=== PATIENT | female | born 1960 | race Caucasian/White ===

== ENCOUNTER 2018-06-24 14:53 | Outpatient (CLI) | payer OTHER | END 2018-06-24 14:54 | disposition home or self-care (01) | LOC: BICMAMMO 14:53 | PROVIDERS: ATTEND Obstetrics & Gynecology Gynecologic Oncology | DX: Z12.31 Encounter for screening mammogram for malignant neoplasm of breast (principal); Z85.89 Personal history of malignant neoplasm of other organs and systems | CPT/HCPCS: 77063; 77067 ==

== ENCOUNTER 2018-07-28 09:07 | Outpatient (CLI) | payer OTHER ==
--- NOTE | 2018-07-28 12:27 | MRI ---
MRI BRAIN WITHOUT CONTRAST: Date: 07/28/18 HISTORY: Persistent headaches. FINDINGS: No evidence of infarct, hemorrhage, midline shift, or abnormal extra-axial fluid collections are seen . The ventricular size is normal and the basilar cisterns are patent. No restricted diffusion is iden tified. A nonspecific small focus of T2 prolongation is seen in the white matter of the right frontal lobe. IMPRESSION: No evidence of acute intracranial process. POS: [facility]
== END 2018-07-28 09:08 | disposition home or self-care (01) ==
LOC: SCSMRI 09:07
PROVIDERS: ATTEND Family Medicine
DX: R51 Headache (principal)
CPT/HCPCS: 70551

== ENCOUNTER 2019-08-21 15:20 | Outpatient (CLI) | payer OTHER ==
--- NOTE | 2019-08-21 15:56 | MMO ---
Bilateral MAMMO Bilat Screen [facility]. CLINICAL HISTORY: Patient is 59 years old and is seen for screening. The patient has no family history of breast cancer. The patient has a history of cervical cancer. VIEWS: The views performed were: bilateral craniocaudal with tomosynthesis and bilateral mediolateral oblique with tomosynthesis. FILMS COMPARED: The present examination has been compared to prior imaging studies performed at [facility] on 03/01/2015, 04/03/2016, 06/11/2017 and 06/24/2018. This study has been interpreted with the assistance of computer-aided detection. MAMMOGRAM FINDINGS: There are scattered fibroglandular densities. There are no suspicious masses, suspicious calcifications, or new areas of architectural distortion. IMPRESSION: THERE IS NO MAMMOGRAPHIC EVIDENCE OF MALIGNANCY. A ROUTINE FOLLOW-UP MAMMOGRAM IN 1 YEAR IS RECOMMENDED. THE RESULTS OF THIS EXAM WERE SENT TO THE PATIENT. ACR BI-RADS Category 1 - Negative MAMMOGRAPHY NOTE: 1. A negative mammogram report should not delay a biopsy if a dominant of clinically suspicious mass is present. 2. Approximately 10% to 15% of breast cancers are not detected by mammography. 3. Adenosis and dense breasts may obscure an underlying neoplasm. Reported by: ROSA ROSS MD Electonically Signed: [id number]
== END 2019-08-21 15:21 | disposition home or self-care (01) ==
LOC: BICMAMMO 15:20
PROVIDERS: ATTEND Obstetrics & Gynecology Gynecologic Oncology
DX: Z12.31 Encounter for screening mammogram for malignant neoplasm of breast (principal); Z85.41 Personal history of malignant neoplasm of cervix uteri
CPT/HCPCS: 77063; 77067

== ENCOUNTER 2020-08-29 08:32 | Outpatient (CLI) | payer OTHER ==
--- NOTE | 2020-08-29 09:04 | MMO ---
Bilateral MAMMO Bilat Screen [facility]. CLINICAL HISTORY: Patient is 60 years old and is seen for screening. The patient has no family history of breast cancer. The patient has a history of cervical cancer. VIEWS: The views performed were: bilateral craniocaudal with tomosynthesis and bilateral mediolateral oblique with tomosynthesis. FILMS COMPARED: The present examination has been compared to prior imaging studies performed at [facility] on 04/03/2016, 06/11/2017, 06/24/2018 and 08/21/2019. This study has been interpreted with the assistance of computer-aided detection. MAMMOGRAM FINDINGS: There are scattered fibroglandular densities. There are no suspicious masses, suspicious calcifications, or new areas of architectural distortion. IMPRESSION: THERE IS NO MAMMOGRAPHIC EVIDENCE OF MALIGNANCY. A ROUTINE FOLLOW-UP MAMMOGRAM IN 1 YEAR IS RECOMMENDED. THE RESULTS OF THIS EXAM WERE SENT TO THE PATIENT. ACR BI-RADS Category 1 - Negative MAMMOGRAPHY NOTE: 1. A negative mammogram report should not delay a biopsy if a dominant of clinically suspicious mass is present. 2. Approximately 10% to 15% of breast cancers are not detected by mammography. 3. Adenosis and dense breasts may obscure an underlying neoplasm. Reported by: ISADORA NELSON MD Electonically Signed: [id number]
== END 2020-08-29 08:33 | disposition home or self-care (01) ==
LOC: BICMAMMO 08:32
PROVIDERS: ATTEND Obstetrics & Gynecology Gynecologic Oncology
DX: Z12.31 Encounter for screening mammogram for malignant neoplasm of breast (principal); Z85.41 Personal history of malignant neoplasm of cervix uteri
CPT/HCPCS: 77063; 77067

== ENCOUNTER 2022-01-11 12:16 | Outpatient (CLI) | payer BC | END 2022-01-11 12:17 | disposition home or self-care (01) | LOC: BICMAMMO 12:16 | PROVIDERS: ATTEND Obstetrics & Gynecology Gynecologic Oncology | DX: Z12.31 Encounter for screening mammogram for malignant neoplasm of breast (principal); Z85.41 Personal history of malignant neoplasm of cervix uteri | CPT/HCPCS: 77063; 77067 ==

== ENCOUNTER 2022-03-23 16:03 | Outpatient (CLI) | payer BC | END 2022-03-23 16:04 | disposition home or self-care (01) | LOC: BICRAD 16:03 | PROVIDERS: ATTEND Family Medicine | DX: M54.12 Radiculopathy, cervical region (principal); M48.02 Spinal stenosis, cervical region | CPT/HCPCS: 72052 ==

== ENCOUNTER 2022-04-10 14:58 | Outpatient (CLI) | payer BC | END 2022-04-10 14:59 | disposition home or self-care (01) | LOC: SCSMRI 14:58 | PROVIDERS: ATTEND Family Medicine | DX: M47.22 Other spondylosis with radiculopathy, cervical region (principal) | CPT/HCPCS: 72141 ==

== ENCOUNTER 2022-09-27 10:41 | Outpatient (CLI) | payer BC | END 2022-09-27 10:42 | disposition home or self-care (01) | LOC: SCSRAD 10:41 | PROVIDERS: ATTEND Family Medicine | DX: M25.511 Pain in right shoulder (principal) ==

== ENCOUNTER 2022-12-13 10:04 | Outpatient (CLI) | payer BC | END 2022-12-13 10:05 | disposition home or self-care (01) | LOC: SCSMRI 10:04 | PROVIDERS: ATTEND Orthopaedic Surgery | DX: M25.511 Pain in right shoulder (principal); M25.711 Osteophyte, right shoulder ==

== ENCOUNTER 2023-06-04 09:50 | Outpatient (CLI) | payer BC | END 2023-06-04 09:51 | disposition home or self-care (01) | LOC: BICMAMMO 09:50 | PROVIDERS: ATTEND Obstetrics & Gynecology Gynecologic Oncology | DX: Z12.31 Encounter for screening mammogram for malignant neoplasm of breast (principal); Z85.41 Personal history of malignant neoplasm of cervix uteri | CPT/HCPCS: 77063; 77067 ==

== ENCOUNTER 2024-07-26 19:16 | Inpatient (IN) | payer BC ==
[2024-07-26] MEDS ORDERED: Acetaminophen 650 MG Suppository PR PRN (20:40)
[2024-07-26] MEDS: Nitroglycerin 2% Ointment 1 INCH/1 GM Packet TOP SCH (21:46)
[2024-07-26 22:01] VITALS: BMI 35.4
[2024-07-26 22:02] LABS: Magnesium 1.9 mg/dL (1.6-2.6)
[2024-07-26 22:08] LABS: Troponin I Less than 0.010 ng/mL (< 0.028)
[2024-07-26] MEDS: Magnesium 2 GM/50 ML(in water) 2 GM in Premix 1 BAG IVPB SCH (23:04)
[2024-07-27 00:47] LABS: #Basophils 0.05 10x3/uL (0.0-0.2); %Basophils 0.7 % (0.0-1.0); %Eosinophils 6.1 % (0.0-10.0); %Lymphocytes 32.8 % (21.0-51.0); %Neutrophils 45.1 % (42.0-75.0); Hematocrit 36.9 % (36.0-47.0); Hemoglobin 12.2 g/dL (12.0-16.0); Mean Corpuscular HGB CONC 33.1 g/dL (32.0-36.0); Mean Corpuscular Hemoglobin 30.4 pg (27.0-31.0); Mean Platelet Volume 10.6 fL (7.4-10.4); Platelet Count 241 10x3/uL (130-400); RBC Distribution Width 13.4 % (11.5-14.5); Red Blood Cell (RBC) Count 4.01 mill/uL (4.20-5.40)
[2024-07-27 01:03] LABS: Hemoglobin A1c 5.3 % (4.0-6.0)
[2024-07-27 01:06] LABS: Anion Gap 10 mmol/L (10-20); BUN (Urea Nitrogen) 13 mg/dL (9.8-20.1); Calc. Creatinine Clearance 108 mL/min (70-130); Carbon Dioxide 25 mmol/L (23-31); Cardiac Risk 3.6 (Less than 4.5); Chloride 104 mmol/L (98-107); Cholesterol 187 mg/dl (< 200 Desired); Estimated GFR 92; Glucose 95 mg/dL (80-115); HDL Cholesterol 52 mg/dL (>60 Neg Risk); LDL Cholesterol, Calculated 106 mg/dL; Potassium 3.9 mmol/L (3.5-5.1); Sodium 135 mmol/L (136-145); Triglycerides 143 mg/dL (Less than 150)
[2024-07-27 01:10] LABS: Troponin I Less than 0.010 ng/mL (< 0.028)
[2024-07-27] MEDS: Nitroglycerin 0.4 MG TAB (25 Tab Bottle) SL PRN (02:51)
[2024-07-27] MEDS: Morphine 2 MG/ML VIAL SLOW IVP PRN (02:59)
[2024-07-27] MEDS: Ondansetron ODT 4 MG TAB PO SCH (03:48)
[2024-07-27] MEDS: Acetaminophen 325 MG TAB PO PRN (07:51)
[2024-07-27] MEDS: Enoxaparin 40 MG (0.4 mL) SYRINGE SC SCH (10:13)
[2024-07-27] MEDS: traMADol HCl 50 MG TAB PO PRN (10:13)
[2024-07-27] MEDS ORDERED: Ondansetron PF 4 MG/2 ML Vial IVP PRN (10:34)
[2024-07-27] MEDS: Fioricet 325/50/40 mg Tablet PO PRN (12:21)
[2024-07-27] MEDS: Ondansetron PF 4 MG/2 ML Vial IVP PRN (12:24)
[2024-07-27] MEDS: Fioricet 325/50/40 mg Tablet PO SCH (15:27)
[2024-07-27] MEDS: Ketorolac Tromethamine 30 MG (1 mL) VIAL IVP SCH (17:22)
[2024-07-27] MEDS: Levothyroxine Sodium 75 MCG TAB PO SCH (17:22)
[2024-07-27] MEDS: Escitalopram Oxalate 10 mg Tablet PO SCH (17:22)
[2024-07-27] MEDS: Lisinopril 5 MG TAB PO SCH (20:24)
[2024-07-28] MEDS: Levothyroxine Sodium 75 MCG TAB PO SCH (04:22)
[2024-07-28] MEDS ORDERED: Levothyroxine Sodium 75 MCG TAB PO SCH (06:00)
[2024-07-28] MEDS: Escitalopram Oxalate 10 mg Tablet PO SCH (07:45)
[2024-07-28] MEDS ORDERED: Escitalopram Oxalate 10 mg Tablet PO SCH (09:00)
[2024-07-28 11:28] VITALS: BP 121/57; TEMP 98.6
[2024-08-03] MEDS ORDERED: Estradiol 0.1mg/24 Hour Patch (Weekly) TD SCH (09:00)
== END 2024-07-28 17:18 | disposition home or self-care (01) | DRG 313 ==
LOC: OBS 19:57 → OBSVTOIN 07-27 16:12
PROVIDERS: ADMIT Internal Medicine; ATTEND Family Medicine
DX: R07.89 Other chest pain (principal); I16.0 Hypertensive urgency; E03.9 Hypothyroidism, unspecified; I44.7 Left bundle-branch block, unspecified; G43.909 Migraine, unspecified, not intractable, without status migrainosus; Z79.899 Other long term (current) drug therapy; Z88.0 Allergy status to penicillin; Z90.710 Acquired absence of both cervix and uterus
CPT/HCPCS: 36415; 80048; 80061; 83036; 83735; 84443; 84484; 85025; 93005; 93010; 93306; J1650; J1885; J2272; J2405; J3475; Q0162

== ENCOUNTER 2025-07-12 13:26 | Outpatient (CLI) | payer BC | END 2025-07-12 13:27 | disposition home or self-care (01) | LOC: SCSRAD 13:26 | PROVIDERS: ATTEND Nurse Practitioner Family | DX: R05.9 Cough, unspecified (principal); R06.02 Shortness of breath | CPT/HCPCS: 71046 ==